=== PATIENT | female | born 2000 | race Caucasian/White ===

== ENCOUNTER 2025-03-04 08:30 | Outpatient (CLI) | payer SELFPAY ==
--- OUTSIDE RECORDS SUMMARY | 2025-03-05 10:17 | XMS_ITS | Clinical Summary ---
Author Organization [employer] [facility] C are Address [address] [place] [phone] Phone Care Team Providers Care Commercial Property Manager Name Role Phone Unavailable Unavailable Conditions or Problems No information available. Medications No information available. Medications Administered No information available. Allergies, Adverse Reactions, Alerts No information available. Results No information available. Plan of Care No information available. Procedures No information available. Vital Signs No information available. Immunizations No information available. Advance Directives No information available.
--- OUTSIDE RECORDS SUMMARY | 2025-03-05 10:18 | XMS_ITS | Clinical Summary ---
Author Organization [facility] Address [address] [place] [address] Phone Care Team Providers Care Laborer Marine Terminal Name Role Phone Sony Mcneil MD Primary Care Provider María Gauthier APRN Unavailable [phone] Allergies No known active allergies Medications multivitamin (THERAGRAN) Oral TabletIndication s:Encounter for other procreative management Take 1 Tablet by mouth daily. 400 Tablet 4 Active albuterol (PROVENTIL HFA;VENTOLIN HFA) 90 mcg/actuation Inhl HFA Aerosol InhalerIndicatio ns:Mild intermittent asthma, unspecified whether complicated Inhale 2 Puffs into the lungs every 4 hours as needed for Wheezing. 1 Each 2 5 Active clindamycin-shirley oyl peroxide (BENZACLIN) Top GelIndications:A cne vulgaris Apply topically 2 times daily. 50 g 2 5 Active Clobetasol 0.05 % Top ShampooIndicatio ns:Psoriasis of scalp Apply 1 Applicator topically three times a week. 118 mL 5 Active VRAYLAR 1.5 mg Oral Capsule 5 Active prazosin (MINIPRESS) 1 mg Oral CapsuleIndicatio ns:Night terrors Take 1 Capsule by mouth nightly. 30 Capsule 2 5 Active traZODone (DESYREL) 100 mg Oral TabletIndication s:Insomnia, persistent Take 1 Tablet by mouth nightly as needed for Sleep. 30 Tablet 5 Active Additional Information Patient not taking.Reason: Therapy Completed, Reported on 12/18/2024 amitriptyline (ELAVIL) 75 mg Oral TabletIndication s:Insomnia, persistent Take 1 Tablet by mouth nightly. 30 Tablet 2 5 Active omeprazole (PRILOSEC) 20 mg Oral Capsule, Delayed Release(E.C.)Ind ications:Heartbu rn Take 1 Capsule by mouth daily. 30 Capsule 2 5 Active Etonogestrel (NEXPLANON) 68 mg Sdrm ImplantIndicatio ns:Nexplanon insertion 68 mg by Subdermal route See Admin Instructions. 1 Each 5 Active Active Problems Patient Care Coordination No te Formatting of this note is d ifferent from the original. CSTA: 12/01/20 (TYPE): Stimulant RADHA: 12/01/20 UDS: 12/01/20 ANGEL: 12/01/20 Problem Noted Date Diagnosed Date Insomnia 07/24/2010 ADHD (attention deficit hyperactivity disorder) 07/24/2010 AR (allergic rhinitis) 07/16/2010 UTI (lower urinary tract infection) 12/25/2009 Encounters Date Type Department Care Team Description 12/18/2024 10:00 AM EDT Office Visit [address] [address] María Gauthier APRN Nexplanon insertion (Primary Dx) 12/10/[address] [facility] [address] [place] [address] Sony Mcneil MD Medication Refill from Last 3 Months Immunizations Immunization Administration Dates Next Due DTaP 03/08/2006, 4,02/16/2002,11/16,2001 DTaP (Daptacel) 03/08/2006, 4,02/16/2002,11/16,2001 HPV 9 Valent 09/26/2017 HPV Quadrivalent 05/18/2013 Hepatitis A, Ped/Adol, 2 Dose 03/29/2018, 018 Hepatitis B, Ped/Adol 02/16/2002,2001,02/2002 Hepatitis B, Unspecified Formulation 02/16/2002, 2001,2001 HiB (PRP-T) 07/08/2003, 2,2001,09/12 HiB, Unspecified Formulation 07/08/2003, 02/16/2002,2001,09/12 IPV 03/08/2006, 2,2001,09/12 LAST MANUFACTURED 2010-Pneum ococcal Conjugate 7 Valent 07/08/2003,02/16/2002,2001,09/12 MMR 03/08/2006,12/28/2002 Meningococcal Conjugate 09/26/2017,02/28/2013 Tdap 11/01/2021,02/28/2013 Varicella 02/28/2013,11/22/2002 Surgical History Surgery Date Site/Laterality Comments TONSILLECTOMY AND ADENOIDECTOMY 06/02/2012 Mouth/Bilateral TONSILLECTOMY & ADENOIDECTOMY ; Surgeon: Spencer Ji MD; Location: [facility] MAIN OR; Service: ENT Medical History Medical History Date Comments ADHD (attention deficit hyperactivity disorder) Allergy Urinary tract infection Anxiety GERD (gastroesophageal reflux disease) Family History Medical History Relation Name Comments Asthma Mother Ravin harris Relation Name Status Comments Mother Ravin harris Social History Tobacco Use Types Packs/Day Years Used Date Smoking Tobacco: Former Cigarettes 0.5 6.7 2 018 - 03/2024 Smokeless Tobacco: Never Tobacco Cessation:Counseling Given: Yes Alcohol Use Standard Drinks/Week Comments Yes 0 (1 standard drink = 0.6 oz pur e alcohol) occassionally PHQ-2 Answer Date Recorded PHQ-2 Total Score 0 09/19/2024 Exercise Vital Sign Answer Date Recorde d On average, how many days pe r week do you engage in moderate to strenuous exercise (like a brisk walk)? 5 days 09/19/2024 On average, how many minutes do you engage in exercise at this level? 30 min 09/19/2024 Sexually Active Control Partners Comments Yes Implant Male Comments No Intention Date Recorded No desire to become (finding) 0 12/18/2024 Sex and Gender Information Value Date Recorded Sex Assigned at Not on file Legal Sex Female 5:39 AM EDT Gender Identity Not on file Sexual Orientation Not on file Obstetrics History Para Term AB IAB SAB Ectopic Multiple Livin g Live Births 1 1 Date Outcome GA Total Labor Labor/2nd/3rd Weight Sex Type Anes PTL Jennifer A1 A5 Name Clin AB Last Filed Vital Signs Vital Sign Reading Time Taken Comments Blood Pressure 122/76 12/18/2024 10:56 AM EDT Pulse 75 12/18/2024 10:56 AM EDT Temperature 37.2 C (99 F) 12/01/2024 9:11 PM EDT Respiratory Rate 18 12/18/2024 10:56 AM EDT Oxygen Saturation 96% 12/01/2024 9:30 PM EDT Inhaled Oxygen Concentration - - Weight 83.5 kg (184 lb) 12/18/2024 10:05 AM EDT Height 162.6 cm (5' 4 ) 12/18/2024 10:05 AM EDT Body Mass Index 31.58 12/18/2024 10:05 AM EDT Plan of Treatment Upcoming Encounters Date Type Department Care Team (Late st Contact Info) Description 05/28/2025 10:30 AM EST Office Visit [facility] [address] [place] [id number] Hudson Khalil MD [address] [place] [address] Health Maintenance Due Date Last Done Comments Chlamydia Screening 2017 Meningococcal B Vaccine (1 o f 2 - Standard) 2017 Pneumococcal Vaccine 0-49 (1 of 2 - PCV) 2020 07/08/2003, 02/16/2002, 2001, Additional history exists COVID-19 Vaccine (3 - 2024-2 6 season) 2025 12/29/2020, 12/01/2020 Influenza Vaccine (#1) 2025 7 (Declined), 03/03/2016 (Declined), 03/18/2015 (Declined), Additional history exists Annual Wellness Exam 04/13/2025 04/13/2024, 04/13/20 17 Cervical Cancer Screening 04/13/2027 Pap Smear 04/13/2027 04/13/2024 DTaP/TDaP/Td (8 - Td or Tdap) 11/02/2031, 02/28/2013, 03/08/2006, Additional history exists Hepatitis B Vaccine Completed 02/16/2002, 02/16/2002, 2001, Additional history exists HPV Completed 09/26/2017, 05/18/2013 Goals Goal Patient Goal Type Associated Problems Recent Progress Patient-Stated? Author Maintain a healthy diet, exercise regularly and maintain an ideal body weight General No Carissa Connolly CCMA Stay Tobacco Free Lifestyle No Hellen Simon CMA Procedures Procedure Name Priority Date/Time Associated Diagnosis Comments POCT URINE Routine 12/18/2024 10:52 AM EDT Nexplanon insertion [place] INSERTION DRUG DELIVERY IMPLANT Routine 12/18/2024 10:00 AM EDT CEMENT OR CONCRETE FINISHING SUPERVISOR CYTOLOGY REQUEST (PAP ONLY) Routine 04/13/2024 11:34 AM EST Well woman exam with routine gynecological exam from Last 3 Months or Most Recently Relevant to Health Maintenance Results * POCT URINE (12/18/2024 10:52 AM EDT) Preg Test, Ur NEG NKHD Lot Number NKHD Expiration Date NKHD SeriAl # NKHD Control Line Yes YES/NO NKHD Urine 12/18/2024 10:5 2 AM EDT us María Gauthier INTERACTIVE MEDIA DESIGNER POINT OF CARE TEST ORDERABL ES Final Result NKHD * [place] INSERTION DRUG DELIVERY IMPLANT (12/18/2024 10:00 AM EDT) Narrative NKHD - 12/18/2024 10:00 AM EDT María Gauthier APRN 12/18/2024 11:16 AM Nexplanon insertion Performed by: María Gauthier APRN Authorized by: María Gauthier APRN Nexplanon insertion Anesthetic: Lidocaine 1% with epinephrine Location: Left inner upper arm Written consent obtained?: Yes Verbal consent obtained?: Yes Risks and benefits: Risks, benefits and alternatives were discussed Consent given by: Patient Procedure Details: The patient is negative for the following medical conditions, listed below: Denies all of the following: today, Blood Clots, Liver Disease, Allergy to Iodine/Betaine/Antiseptics, Heart Attack or Angina, Unusual Vaginal Bleeding, Allergy to numbing medicines, Stroke, HIV, Allergy to adhesives, Bleeding Disorder, Breast Cancer, Lupus. Interruption in current B/C method? No Describe: Depo shot Procedure note: The patient was placed in supine position and the left arm was marked with a surgical marker at the insertion site 8-10 cm from the medial epicondyle of the humerus and 3-5 cm posterior to the sulcus between the triceps and biceps muscles. The insertion site was cleaned with Iodine. The skin was stretched and the level of the implant device entered the skin at <30 degree angle. The applicator was lowered to a nearly horizontal position and the skin was lifted as the needle was inserted to its full length. The applicator slider was fully retracted and the applicator was removed. The presence of the implant was confirmed by palpation by the clinician and the patient. Health Education: Preconception /Folic Acid, Physical Activity, Use backup method x 7 days, Diet/Nutrition, and STD/HIV Educational Handouts:FPEM Provided, Post Insertion instructions, and Patient verbalizes understanding of education Patient tolerance: tolerated well, no immediate complications Dressing: Steri-Strips, dressing applied and compression bandage María Gauthier APRN PROCEDURE/MINOR SURGICAL OR DERABLES Final Result NKHD * CEMENT OR CONCRETE FINISHING SUPERVISOR CYTOLOGY REQUEST (PAP ONLY) (04/13/2024 11:34 AM EST) CASE REPORT Gynecologic Cytology Report Case: [id number] Authorizing Provider: María Gauthier APRN Collected: 04/13/2024 1134 Ordering Location: [facility] Received: 04/13/2024 1134 Department Jagdish First Screen: [place] N[place] CT Specimen: LIQUID-BASED PAP - CERVICAL, Cervix 04/23/2024 12:43 PM EST [facility] PAP FINAL DIAGNOSIS Negative for intraepithelial lesion or malignancy 04/23/2024 12:43 PM EST [facility] at 1243 EST MICROSCOPIC DESCRIPTION Microscopic examination is performed and the findings corroborate the diagnosis. 04/23/2024 12:43 PM EST [facility] PAP SMEAR ADEQUACY Satisfactory for evaluation 04/23/2024 12:43 PM EST [facility] ENDOCERVICAL T-ZONE Transformation zone present 04/23/2024 12:43 PM EST [facility] EMBEDDED IMAGES 12:43 PM EST [facility] PAP DISCLAIMER The Pap Smear is a screening test that aids in the detection of cervical cancer and cancer precursors. Both false positive and false negative results can occur. The test should be used at regular intervals, and positive results should be confirmed before definitive therapy. Processed using the ThinPrep Mining Engineer Automated cytology screening device (Gateway 3D). 04/23/2024 12:43 PM EST [facility] Thin Prep SPECIMEN FROM UTERINE CERVIX / Unknown 04/13/2024 11:34 AM EST 04/13/2024 11:34 AM EST us María Gauthier INTERACTIVE MEDIA DESIGNER CYTOLOGY ORDERABLES Final R esult [facility] [address] [place] [address] from Last 3 Months or Most Recently Relevant to Health Maintenance Insurance [employer] [facility] [place] [employer] [place] [employer] [place] [address] [place], [place] [id number] Advance Directives For more information, please contact: [phone] * Full Code (Latest Code Status on File) Date Activated Date Inactivated Comments 06/02/2012 11:04 AM 06/02/2012 3:04 PM Care Teams Laborer Marine Terminal Relationship Specialty Start Date End Date Sony Mcneil MD [address] [place] [address] PCP - General Family Medicine 06/30/18 María Gauthier APRN [address] [place] [address] Nurse Practitioner-Family 04/13/24
--- OUTSIDE RECORDS SUMMARY | 2025-03-05 10:18 | XMS_ITS | Encounter Summary ---
Author Organization [facility] [address] Care Team Providers Care Salmon Gillnet Vessel Operator Name Role Phone Sony Mcneil MD Primary Care Provider María Gauthier LOCAL COORDINATOR Unavailable [phone] Encounter Details Date Type Department Care Team (Late st Contact Info) Description 11/26/2024 Results [facility] [address] [place] [phone] Sony Mcneil MD [address] [place] [address] ALLERGEN, FOOD, COMMON ADULT PANEL-REF LAB, ALLERGEN, REGION 5 RESPIRATORY PANEL-REF LAB Social History Tobacco Use Types Packs/Day Years Used Date Smoking Tobacco: Former Cigarettes 0.5 6.7 2 018 - 03/2024 Smokeless Tobacco: Never Alcohol Use Standard Drinks/Week Comments Yes 0 [...] 09/19/2024 Sexually Active Control Partners Comments Yes Condom, Injection Male Comments No Sex and Gender Information Value Date Recorded Sex Assigned at Not on file Legal Sex Female 5:39 AM EDT Gender Identity Not on file Sexual Orientation Not on file documented as of this encounter Functional Status * Is the person deaf or does he/she have serious difficulty hearing? Answer Date of Assessment Author No 08/29/2020 3:33 PM EDT Mirela Muñoz RMA * Is the person blind or does he/she have serious difficulty seeing even when wearing glasses? Answer Date of Assessment Author No 08/29/2020 3:33 PM EDT Wanda Mirela Alarcon RMA * Does this person have serious difficulty walking or climbing stairs? Answer Date of Assessment Author No 08/29/2020 3:33 PM EDT Mirela Muñoz RMA * Does this person have difficulty dressing or bathing? Answer Date of Assessment Author No 08/29/2020 3:33 PM EDT AdrianmagalyMirela, RMA * Because of a physical, mental or emotional condition, does this person have difficulty doing errands alone such as visiting a doctor's office or shopping? Answer Date of Assessment Author No 08/29/2020 3:33 PM EDT AdrianmagalyMirela, RMA * Suicide Severity Rating Answer Date of Assessment Author No Risk 12/01/2024 9:22 PM EDT Nona Esquivel RN * Pershing Suicide Severity Rating Scale (Q shift for moderate and high) Question Answer Date of Assessment Author 1. In the past month, have y ou wished you were or wished you could go to sleep and not wake up? 0 12/01/2024 9:22 PM EDT Nona Esquivel RN 2. In the past month, have y ou actually had any thoughts of killing yourself? (If no, skip to question 6) 0 12/01/2024 9:22 PM AITLIOT Nona Esquivel RN 6. Have you ever done anythi ng, started to do anything, or prepared to do anything to end your life? 0 12/01/2024 9:22 PM EDT Linsmayer, Nona A, RN documented as of this encounter Mental Status * Because of a physical, mental or emotional condition, does this person have serious difficulty concentrating, remembering or making decisions? Answer Entry Date Author No 08/29/2020 3:33 PM EDT Mirela Muñoz RMA documented in this encounter Plan of Treatment Upcoming Encounters Date Type Department Care Team (Late st Contact Info) Description 05/28/2025 10:30 AM EST Office Visit [facility] [address] [facility] [address] [place] [address] Hudson Khalil MD [address] [place], [place] [id number] documented as of this encounter Goals Goal Patient Goal Type Associated Problems Recent Progress Patient-Stated? Author Maintain a healthy diet, exercise regularly and maintain an ideal body weight General No Carissa Connolly CCMA Stay Tobacco Free Lifestyle No Hellen Simon, COUNTERSINKER BALANCE SCREW HOLE documented as of this encounter Visit Diagnoses Not on filedocumented in this encounter Care Teams Salmon Gillnet Vessel Operator Relationship Specialty Start Date End Date Sony Mcneil MD [address] [place] [address] PCP - General Family Medicine 06/30/18 María Gauthier APRN [address] [place] [address] Nurse Practitioner-Family 04/13/24 documented as of this encounter
== END 2025-03-04 23:59 | disposition home or self-care (01) ==
LOC: LAB.DROPOF 03-05 10:15
PROVIDERS: PCP Urology; Visit Provider Urology
DX: N89.8 Other specified noninflammatory disorders of vagina (principal)
CPT/HCPCS: 87491; 87529; 87591; 87661; 87798; 87801